=== PATIENT | female | born 1960 | race American Indian/Alaskan Native ===

== ENCOUNTER 2017-04-30 11:20 | Emergency (ER) | payer MEDICARE ==
[2017-04-30 13:02] LABS: Eosinophils % (Auto) 3.5 % (0.0-4.3); Hematocrit 45.2 % (30.3-42.9); Hemoglobin 14.7 gm/dl (10.1-14.3); Mean Corpuscular HGB Conc 33 % (30-34); Mean Corpuscular Hemoglobin 30 pg (28-32); Mean Corpuscular Volume 92 fl (79-97); Platelet Count 281 K/mm3 (140-440); Red Blood Count 4.91 M/mm3 (3.65-5.03); Red Cell Distribution Width 15.5 % (13.2-15.2); White Blood Count 8.8 K/mm3 (4.5-11.0)
[2017-04-30 13:08] LABS: Alanine Aminotransferase 36 units/L (7-56); Albumin 4.9 g/dL (3.9-5); Albumin/Globulin Ratio 1.6 %; Alkaline Phosphatase 58 units/L (35-129); Anion Gap 20 mmol/L; BUN/Creatinine Ratio 23.75; Blood Urea Nitrogen 19 mg/dL (7-17); Calcium 10.7 mg/dL (8.4-10.2); Carbon Dioxide 26 mmol/L (22-30); Chloride 98.9 mmol/L (98-107); Glucose 90 mg/dL (65-100); Lipase 143 units/L (13-60); Potassium 4.4 mmol/L (3.6-5.0); Sodium 140 mmol/L (137-145); Total Protein 7.9 g/dL (6.3-8.2)
[2017-04-30 13:20] LABS: Bilirubin,Urine NEG (Negative); Blood,Urine SM (Negative); Ketones,Urine NEG (Negative); Leukocyte Esterase,Urine TR (Negative); Mucus,Urine 1+ /HPF; Nitrite,Urine NEG (Negative); Urobilinogen,Urine < 2.0 mg/dL (<2.0)
[2017-04-30 13:23] LABS: RBC,Urine > 182.0 /HPF (0.0-6.0)
[2017-04-30 18:59] VITALS: BP 103/77
[2017-04-30] MEDS ORDERED: TORADOL ONE (19:33)
[2017-04-30] MEDS ORDERED: NACL 0.9% 1000 ML 1,000 ML ONE (19:33)
[2017-04-30] MEDS ORDERED: MORPHINE ONE (19:34)
[2017-04-30] MEDS ORDERED: ZOFRAN ONE (19:34)
[2017-04-30] MEDS ORDERED: MORPHINE IV ONE (19:54)
[2017-04-30] MEDS ORDERED: NACL 0.9% 1000 ML 1,000 ML IV ONE (19:54)
[2017-04-30] MEDS ORDERED: ZOFRAN IV ONE (19:54)
[2017-04-30] MEDS ORDERED: TORADOL IV ONE (19:54)
[2017-04-30] MEDS ORDERED: DILAUDID IV ONE (20:06)
--- NOTE | 2017-04-30 20:09 | Emergency Department Report ---
ED Abdominal Pain HPI - General Chief Complaint: Abdominal Pain Stated Complaint: KIDNEY PAIN /BACK PAIN Time Seen by Provider: 04/30/17 19:08 Source: patient Mode of arrival: Ambulatory Limitations: No Limitations - History of Present Illness MD Complaint: flank pain -: Sudden Location: L flank, R flank, bilateral flank Radiation: none Migration to: no migration Severity: moderate Severity scale (0 -10): 5 Quality: stabbing, aching, fullness, sharp Consistency: constant Improves With: nothing Worsens With: nothing Associated Symptoms: nausea. denies: vomiting, diarrhea - Related Data Home Medications Medication Instructions Recorded Confirmed Last Taken Lisinopril [Zestril] 20 mg PO QDAY 04/30/17 04/30/17 Unknown Omeprazole Magnesium [PriLOSEC Otc] 20 mg PO QDAY 04/30/17 04/30/17 Unknown Simvastatin [Zocor TAB] 20 mg PO QHS 04/30/17 04/30/17 Unknown Previous Rx's Medication Instructions Recorded Last Taken Type HYDROcodone/APAP 5-325 [Munson 1 each PO BID #12 tablet 04/30/17 Unknown Rx 5/325] Meloxicam [Mobic] 15 mg PO DAILY #20 tablet 04/30/17 Unknown Rx Allergies Allergy/AdvReac Type Severity Reaction Status Date / Time No Known Allergies Allergy Unverified 04/30/17 12:11 ED Review of Systems ROS: Stated complaint: KIDNEY PAIN /BACK PAIN Other details as noted in HPI Comment: All other systems reviewed and negative ED Past Medical Hx - Past Medical History Hx Hypertension: Yes Hx Kidney Stones: Yes - Surgical History Past Surgical History?: Yes Additional Surgical History: tubal ligation. left knee arthroscopy - Social History Smoking Status: Current Every Day Smoker Substance Use Type: None - Medications Home Medications: Home Medications Medication Instructions Recorded Confirmed Last Taken Type HYDROcodone/APAP 5-325 [Munson 1 each PO BID #12 tablet 04/30/17 Unknown Rx 5/325] Lisinopril [Zestril] 20 mg PO QDAY 04/30/17 04/30/17 Unknown History Meloxicam [Mobic] 15 mg PO DAILY #20 tablet 04/30/17 Unknown Rx Omeprazole Magnesium [PriLOSEC Otc] 20 mg PO QDAY 04/30/17 04/30/17 Unknown History Simvastatin [Zocor TAB] 20 mg PO QHS 04/30/17 04/30/17 Unknown History ED Physical Exam - General Limitations: No Limitations General appearance: alert, in no apparent distress - Head Head exam: Present: atraumatic, normocephalic - Eye Eye exam: Present: normal appearance, PERRL - ENT ENT exam: Present: normal exam, normal orophraynx, mucous membranes moist - Neck Neck exam: Present: normal inspection - Respiratory Respiratory exam: Present: normal lung sounds bilaterally. Absent: respiratory distress - Cardiovascular Cardiovascular Exam: Present: regular rate, normal rhythm, bradycardia. Absent : systolic murmur, diastolic murmur, rubs, gallop - GI/Abdominal GI/Abdominal exam: Present: soft, normal bowel sounds. Absent: distended, tenderness, guarding, rebound, rigid, organomegaly, mass, bruit, pulsatile mass - Extremities Exam Extremities exam: Present: normal inspection - Back Exam Back exam: Present: normal inspection - Neurological Exam Neurological exam: Present: alert, oriented X3 - Psychiatric Psychiatric exam: Present: normal affect, normal mood - Skin Skin exam: Present: warm, dry, intact, normal color. Absent: rash ED Course Vital Signs 04/30/17 04/30/17 04/30/17 12:06 15:39 18:58 Temperature 98.2 F 98.4 F 99 F Pulse Rate 85 80 82 Respiratory 18 18 Rate Blood Pressure 111/80 Blood Pressure 109/74 103/77 [Right] O2 Sat by Pulse 16 L 97 98 Oximetry 04/30/17 04/30/17 04/30/17 18:59 19:55 19:56 Temperature Pulse Rate Respiratory 18 18 18 Rate Blood Pressure Blood Pressure [Right] O2 Sat by Pulse 98 Oximetry 04/30/17 04/30/17 04/30/17 20:25 20:26 20:38 Temperature Pulse Rate Respiratory 18 18 18 Rate Blood Pressure Blood Pressure [Right] O2 Sat by Pulse Oximetry 04/30/17 21:08 Temperature Pulse Rate Respiratory 18 Rate Blood Pressure Blood Pressure [Right] O2 Sat by Pulse Oximetry ED Medical Decision Making - Lab Data Result diagrams: 04/30/17 12:38 04/30/17 12:38 Critical care attestation.: If time is entered above; I have spent that time in minutes in the direct care of this critically ill patient, excluding procedure time. ED Disposition Clinical Impression: Kidney stone Disposition: DC TO HOME OR SELFCARE Is pt being admited?: No Does the pt Need Aspirin: No Condition: Good Instructions: Abdominal Pain (ED) Prescriptions: HYDROcodone/APAP 5-325 [Munson 5/325] 1 each PO BID #12 tablet Meloxicam [Mobic] 15 mg PO DAILY #20 tablet Referrals: PRIMARY CARE, [Primary Care Provider] - 3-5 Days Time of Disposition: 23:33
--- NOTE | 2017-04-30 23:05 | Cat Scan Report ---
FINAL REPORT PROCEDURE: CT ABDOMEN PELVIS WO CON TECHNIQUE: Computerized axial tomography of the abdomen and pelvis was performed without intravenous contrast. This study is performed without intravascular contrast material and its sensitivity for abdominal and pelvic pathology, including neoplasms, inflammation, abscess, free fluid, thrombosis, arterial dissection and infarction, is reduced compared with a contrast enhanced study. HISTORY: abd pain,h/o of kidney stones COMPARISON: No prior studies are available for comparison. FINDINGS: Visualized lower thorax: COPD with minimal atelectasis in the anterior sulcus right middle lobe and lingula Liver: Diffuse fatty infiltration of liver Spleen: Normal size and attenuation. Gallbladder and biliary system: Normal. Pancreas: 2 x 3 millimeter calcification in the region of the pancreatic head. Adrenals: 10 x 6 millimeter low attenuated area in the right adrenal gland Kidneys: Scattered small renal calculi measuring 2 millimeters in the upper pole right kidney 1 millimeter in the right mid anterior kidney 2 millimeters in the lower pole right kidney 6 x 3 millimeters in the lower pole left kidney with subjacent 2 millimeter calculus. GI tract: No oral contrast. Appendix in the 7 8 millimeter range with minimal appendicolith formation. Lymph nodes and mesentery: Scattered mesenteric and retroperitoneal lymph nodes. 1 x 1.5 centimeter lymph node in the pre portal area Vasculature: Normal. Bladder: Normal. Reproductive organs: Heterogeneous lobular uterus with slight indistinctness or haziness around the uterus nonspecific Peritoneum: No free fluid. Musculoskeletal structures: No significant abnormality. Other: Degenerative changes lumbar spine including listhesis L4-5 disc bulging L3-4 L4-5 L5-S1 IMPRESSION: Nonobstructive renal calculi. Mildly prominent appendix without evidence of acute appendicitis.
== END 2017-05-01 00:05 | disposition home or self-care (01) ==
LOC: ED 11:20
DX: N20.0 Calculus of kidney (principal); I10 Essential (primary) hypertension; F17.210 Nicotine dependence, cigarettes, uncomplicated
CPT/HCPCS: 36415; 74176; 80053; 81001; 83690; 85025; 96361; 96374; 96375; 99284; J1170; J1885; J2270; J2405; J7030

== ENCOUNTER 2017-05-16 08:53 | Outpatient (CLI) | payer MEDICARE ==
--- NOTE | 2017-05-16 11:17 | Mammography Report ---
BILATERAL DIGITAL SCREENING MAMMOGRAM with CAD: 05/16/17 CLINICAL: Routine screening. COMPARISON:None available. However, a prior mammogram was apparently done at [facility] [place], [place]. FINDINGS: The breasts are heterogeneously dense, which may obscure small masses. A right asymmetry on the CC view requires comparison with a prior mammogram if possible.No architectural distortion or suspicious calcifications.The left breast is negative. IMPRESSION: Right asymmetry requiring further evaluation. BI-RADS CATEGORY: 0 -- Additional Evaluation Required RECOMMENDATION: Comparison with a previous mammogram. We will attempt to obtain a prior mammogram for comparison . If we do not obtain a prior mammogram within 30 days, a revised report will be issued recommending a recall for additional imaging of the right breast . Please be advised that the patient should not schedule an appointment for return until adequate time (at least 2 weeks) has passed for us to obtain the prior mammogram. ACR BI-RADS MAMMOGRAPHIC CODES: 0 = Needs additional imaging evaluation; 1 = Negative; 2 = Benign; 3 = Probably benign; 4 = Suspicious; 5 = Malignant; 6 = Known biopsy-proven malignancy COMMENT: 1. Dense breast tissue, i.e., adenosis, fibrocystic changes, etc., may obscure an underlying neoplasm. 2. Approximately 10% of cancers are not detected with mammography. 3. A negative mammography report should not delay biopsy if a clinically suspicious mass is present. COMMENT: Patient follow-up letters are generated via our [employer] application.
== END 2017-05-16 08:54 | disposition home or self-care (01) ==
LOC: SPVWC 08:53
PROVIDERS: ATTEND Hospitalist
DX: Z12.31 Encounter for screening mammogram for malignant neoplasm of breast (principal); I10 Essential (primary) hypertension; F17.200 Nicotine dependence, unspecified, uncomplicated
CPT/HCPCS: 77067; G0202

== ENCOUNTER 2017-06-03 09:18 | Outpatient (CLI) | payer MEDICARE ==
--- NOTE | 2017-06-03 10:43 | Ultrasound Report ---
Right mammogram and right breast ultrasound: Spot compression imaging of the right breast demonstrates an island of fibroglandular appearing tissue extending from the areola into the lateral breast with no definable mass and no architectural distortion. Ultrasound of the breast also fails to identify any echogenic abnormality in the area of this asymmetry. I cannot palpate any obvious mass in this area. Impression: Probable benign right breast asymmetry. Recommendation: Repeat mammogram in 6 months to confirm stability. This patient is going to attempt to obtain her prior mammogram and if so an updated report will be issued. BI-RADS CATEGORY: 3 = Probably benign ACR BI-RADS MAMMOGRAPHIC CODES: 0 = Needs additional imaging evaluation; 1 = Negative; 2 = Benign; 3 = Probably benign; 4 = Suspicious; 5 = Malignant; 6 = Known biopsy-proven malignancy COMMENT: 1. Dense breast tissue, i.e., adenosis, fibrocystic changes, etc., may obscure an underlying neoplasm. 2. Approximately 10% of cancers are not detected with mammography. 3. A negative mammography report should not delay biopsy if a clinically suspicious mass is present.
== END 2017-06-03 09:19 | disposition home or self-care (01) ==
LOC: SPVWC 09:18
PROVIDERS: ATTEND Hospitalist
DX: N64.89 Other specified disorders of breast (principal); I10 Essential (primary) hypertension; F17.200 Nicotine dependence, unspecified, uncomplicated
CPT/HCPCS: 76642; G0206

== ENCOUNTER 2018-04-06 08:13 | Outpatient (CLI) | payer MEDICARE ==
[2018-04-06 08:42] LABS: Hematocrit 41.6 % (30.3-42.9); Hemoglobin 13.7 gm/dl (10.1-14.3); Mean Corpuscular HGB Conc 33 % (30-34); Mean Corpuscular Hemoglobin 31 pg (28-32); Mean Corpuscular Volume 93 fl (79-97); Platelet Count 290 K/mm3 (140-440); Red Blood Count 4.49 M/mm3 (3.65-5.03); Red Cell Distribution Width 15.3 % (13.2-15.2)
[2018-04-06 09:07] LABS: Alanine Aminotransferase 33 units/L (7-56); Albumin 4.2 g/dL (3.9-5); BUN/Creatinine Ratio 18; Blood Urea Nitrogen 16 mg/dL (7-17); Calcium 9.4 mg/dL (8.4-10.2); Chol/HDL Ratio 2.73 %; HDL Cholesterol 69 mg/dL (40-59); Hemolysis Index 4; LDL Cholesterol,Direct 114 mg/dL (50-130)
--- NOTE | 2018-04-06 09:35 | XRay Report ---
ROUTINE CHEST, TWO VIEWS: HISTORY: COPD. The trachea, heart, mediastinal contour, lung navarro and bony thorax are unremarkable. IMPRESSION: Unremarkable chest x-ray.
--- NOTE | 2018-04-06 09:39 | Fluoroscopy Report ---
UPPER GI AIR CONTRAST: History: Reflux, pain. FINDINGS: 25 fluoroscopic images were captured during this exam. The patient ingested barium without difficulty. The esophageal contour is normal. There are no ulcerations or filling defects seen in the esophagus. No hernia was visualized. A few episodes of gastroesophageal reflux into the distal esophagus was witnessed during this exam. There is moderate diffuse gastric mucosal thickening throughout the stomach. A nonspecific gastritis is likely. There is a questionable area of mucosal ulceration in the antrum of the stomach along the greater curvature. There also appeared to be a small amount of debris in the stomach. The patient admitted to taking medications prior to this exam. The remainder of the stomach is unremarkable. The duodenal bulb and duodenal sweep are within normal limits. IMPRESSION: Findings compatible with gastritis. Questionable mucosal lesion in the gastric antrum as described. Given these findings, endoscopy is recommended. Occasional episodes of mild gastroesophageal reflux was witnessed.
== END 2018-04-06 08:14 | disposition home or self-care (01) ==
LOC: FLUORO 08:13
PROVIDERS: ATTEND Internal Medicine
DX: K21.9 Gastro-esophageal reflux disease without esophagitis (principal); J44.9 Chronic obstructive pulmonary disease, unspecified; I10 Essential (primary) hypertension; F17.210 Nicotine dependence, cigarettes, uncomplicated
CPT/HCPCS: 36415; 71046; 74247; 80053; 80061; 84436; 84443; 85027